=== PATIENT | female | born 1990 | race Hispanic/Latino ===

== ENCOUNTER 2019-01-27 13:48 | Emergency (ER) | payer BC, MEDICAID, OTHER ==
[2019-01-27 14:08] LABS: BASOPHILS % (AUTO) 0.5 % (0.0-5.0); EOSINOPHILS % (AUTO) 0.5 % (0.0-8.0); HEMATOCRIT 36.8 % (36-48); LYMPHOCYTES % (AUTO) 26.1 % (21.0-51.0); MEAN CORPUSCULAR HEMOGLOBIN 30.2 pg (27.0-33.0); MEAN CORPUSCULAR HGB CONC 32.6 g/dL (32.0-36.0); MEAN CORPUSCULAR VOLUME 92.5 fL (79-99); MONOCYTES % (AUTO) 7.4 % (3.0-13.0); NEUTROPHILS % (AUTO) 65.2 % (40.0-77.0); PLATELET COUNT (AUTO) 275 K/uL (130-400); RED BLOOD CELL COUNT(AUTO) 3.98 MIL/uL (4.00-5.50); RED CELL DISTRIBUTION WIDTH 12.3 % (11.0-15.5); WHITE BLOOD COUNT (AUTO) 6.2 K/uL (4.8-10.8)
[2019-01-27] MEDS ORDERED: ACETAMINOPHEN 325 MG TAB ONE (15:15)
== END 2019-01-27 15:43 | disposition home or self-care (01) ==
LOC: EDH 13:48
DX: O20.0 Threatened abortion (principal); Z3A.01 Less than 8 weeks gestation of pregnancy
CPT/HCPCS: 36415; 76817; 84702; 85025; 86900; 86901

== ENCOUNTER 2019-09-16 14:34 | Observation (INO) | payer MEDICAID ==
[~2019-09-16] VITALS: Ht 154.9 cm; Wt 68.9 kg
[2019-09-16 15:08] LABS: APPEARANCE,URINE Clear (CLEAR); BILIRUBIN,URINE Negative (NEGATIVE); COLOR,URINE Yellow (YELLOW); GLUCOSE, URINE (UA) Negative (NEGATIVE); KETONES,URINE Negative (NEGATIVE); LEUKOCYTE ESTERASE ,URINE Trace (NEGATIVE); NITRATE,URINE Negative (NEGATIVE); OCCULT BLOOD,URINE Small (NEGATIVE); PH,URINE 7.5 (5.0-8.0); PROTEIN,URINE Negative (NEGATIVE)
[2019-09-16 15:17] LABS: BACTERIA,URINE Few /HPF (None Seen); MUCUS,URINE Rare LPF (None Seen); SQUAMOUS EPITHELIAL CELL,UR Few /HPF (0-2)
[2019-09-16] MEDS ORDERED: LACTATED RINGERS 1000ML 1,000 ML IV ONE ×2 (18:53)
[2019-09-16] MEDS ORDERED: MAGNESIUM SULFATE 1,000 ML IV PRN (19:40)
[2019-09-16] MEDS ORDERED: LACTATED RINGERS 1000ML 1,000 ML IV SCH (19:40)
[2019-09-16] MEDS ORDERED: CELESTONE SOLUSPAN 6 MG/ML 5ML VIAL IM SCH (19:45)
[2019-09-16] MEDS ORDERED: CALCIUM GLUCONATE 1 GM/10 ML VIAL IV PRN (19:45)
[2019-09-16] MEDS ORDERED: MAGNESIUM 4GM PREMIX 100ML 100 ML IV PRN (19:45)
[2019-09-16] MEDS ORDERED: CELESTONE SOLUSPAN 6 MG/ML 5ML VIAL ONE (19:52)
[2019-09-16] MEDS ORDERED: MAGNESIUM 4GM PREMIX 100ML 100 ML IV ONE (19:52)
[2019-09-16] MEDS ORDERED: AMPICILLIN 2GM+NS 100ML 100 ML IV ONE (19:52)
[2019-09-16] MEDS ORDERED: MAGNESIUM SULFATE 1,000 ML IV ONE (19:52)
[2019-09-16] MEDS ORDERED: AMPICILLIN 2GM+NS 100ML 100 ML IV SCH (20:00)
[2019-09-16] MEDS ORDERED: TERBUTALINE SULFATE VIAL 1MG/ML SQ ONE (21:10)
[2019-09-16] MEDS ORDERED: PROMETHAZINE HCL 25 MG/ML 1ML AMPULE IM PRN (21:15)
[2019-09-16] MEDS ORDERED: MEPERIDINE-PF 50 MG/ML SYG IVP PRN (21:15)
[2019-09-16 21:35] VITALS: BP 110/58
[2019-09-16] MEDS ORDERED: TERBUTALINE SULFATE VIAL 1MG/ML SQ SCH (22:15)
[2019-09-17] MEDS: AMPICILLIN 1GM+NS 50ML 50 ML IV SCH ×3 (00:26→08:13)
== END 2019-09-17 15:20 | disposition home or self-care (01) ==
LOC: EDH 14:34 → LDH 14:35
PROVIDERS: ADMIT Specialist; ATTEND Specialist
DX: O62.9 Abnormality of forces of labor, unspecified (principal); O26.853 Spotting complicating pregnancy, third trimester; R10.9 Unspecified abdominal pain; Z3A.32 32 weeks gestation of pregnancy
CPT/HCPCS: 76805; 81001; 96365; 96366 ×3; 96368; 96372; 96375; 99284; A4314; A4510; A4600; G0378 ×22; J0290 ×4; J0702; J2175; J2550; J3105; J3475 ×2; J7120 ×4; 96360

== ENCOUNTER 2019-09-22 11:29 | Inpatient (IN) | payer MEDICAID ==
[~2019-09-22] VITALS: Ht 154.9 cm; Wt 70.3 kg
[2019-09-22 12:05] LABS: APPEARANCE,URINE Clear (CLEAR); BILIRUBIN,URINE Negative (NEGATIVE); COLOR,URINE Yellow (YELLOW); GLUCOSE, URINE (UA) Negative (NEGATIVE); KETONES,URINE Negative (NEGATIVE); LEUKOCYTE ESTERASE ,URINE Negative (NEGATIVE); NITRATE,URINE Negative (NEGATIVE); OCCULT BLOOD,URINE Negative (NEGATIVE); PROTEIN,URINE Negative (NEGATIVE)
[2019-09-22 12:42] LABS: PH,URINE 8.5 (5.0-8.0)
[2019-09-22] MEDS: LACTATED RINGERS 1000ML 1,000 ML IV SCH ×3 (14:30→23:17)
[2019-09-22] MEDS: TERBUTALINE SULFATE VIAL 1MG/ML SQ PRN ×2 (15:45→16:45)
[2019-09-24] MEDS: LACTATED RINGERS 1000ML 1,000 ML IV SCH ×2 (02:46→11:00)
[2019-09-24] MEDS ORDERED: DOCUSATE SODIUM 100 MG CAP PO ONE (23:14)
[2019-09-25] MEDS: DOCUSATE SODIUM 100 MG CAP PO SCH (20:51)
[2019-09-25] MEDS: LACTATED RINGERS 1000ML 1,000 ML IV SCH (20:52)
[2019-09-26] MEDS: DOCUSATE SODIUM 100 MG CAP PO SCH ×2 (09:00→21:56)
[2019-09-26] MEDS: LACTATED RINGERS 1000ML 1,000 ML IV SCH (13:00)
[2019-09-26 22:16] LABS: HEMATOCRIT 29.9 % (36-48); MEAN CORPUSCULAR HGB CONC 31.4 g/dL (32.0-36.0); RED BLOOD CELL COUNT(AUTO) 3.36 MIL/uL (4.00-5.50); RED CELL DISTRIBUTION WIDTH 13.9 % (11.0-15.5); WHITE BLOOD COUNT (AUTO) 7.6 K/uL (4.8-10.8)
[2019-09-27] MEDS ORDERED: CEFAZOLIN SODIUM 1 GM VIAL IVP PRN (07:00)
[2019-09-27] MEDS ORDERED: OXYTOCIN-LR 20 UNITS/1000 ML 2,000 ML IV ONE (07:17)
[2019-09-27] MEDS ORDERED: TRANEXAMIC ACID 1000MG/10ML ONE (07:23)
[2019-09-27] MEDS ORDERED: MISOPROSTOL 200 MCG TABLET ONE (07:23)
[2019-09-27] MEDS ORDERED: METHYLERGONOVINE MALEATE 0.2 MG/1 ML ML ONE (07:23)
[2019-09-27] MEDS ORDERED: DURAMORPH PF1 MG/ML 10ML AMP IV ONE (07:39)
[2019-09-27] MEDS ORDERED: EPHEDRINE SULFATE 50 MG/ML AMPULE ONE (07:52)
[2019-09-27] MEDS ORDERED: SODIUM CHLORIDE 0.9% 10 ML VIAL IVP PRN (09:00)
[2019-09-27] MEDS ORDERED: PROMETHAZINE HCL 25 MG/ML 1ML AMPULE IM PRN (09:00)
[2019-09-27] MEDS ORDERED: OXYTOCIN-LR 20 UNITS/1000 ML 1,000 ML IV PRN (09:00)
[2019-09-27] MEDS ORDERED: MEPERIDINE-PF 75 MG/ML SYG IM PRN (09:00)
[2019-09-27 10:38] VITALS: BP 119/81
[2019-09-27] MEDS ORDERED: EPHEDRINE SULFATE 50 MG/ML AMPULE IVP PRN (11:15)
[2019-09-27] MEDS ORDERED: DiphenhydrAMINE HCL 50 MG/ML VIAL IVP PRN (11:15)
[2019-09-27] MEDS ORDERED: ONDANSETRON HCL 4 MG/2 ML VIAL IVP PRN (11:15)
[2019-09-27] MEDS ORDERED: NALOXONE HCL 0.4 MG/1 ML ML IVP PRN (11:15)
[2019-09-27] MEDS: DEXTROSE 5 %-0.45 % NACL 1,000 ML IV PRN ×2 (13:56→21:55)
[2019-09-27 16:19] VITALS: BP 108/69
--- NOTE | 2019-09-27 16:19 | NUR ---
PERICARE GIVEN TO PATIENT AT THIS TIME. BLEEDING IS SCANT. FUNDUS IS FIRM PATIENT ABLE TO LIFT HIPS WITHOUT DIFFICULTY. CALL LIGHT LEFT IN REACH, ADVISED TO CALL WITH ANY NEED OR CONCERN.
[2019-09-27 19:30] VITALS: BP 122/77
--- NOTE | 2019-09-27 19:30 | NUR ---
TRAMAINE CARE DONE. Addendum: 09/28/19 at 0530 by ANITHA HEAD RN RN Amended: Links added.
[2019-09-27] MEDS: DOCUSATE SODIUM 100 MG CAP PO SCH ×2 (20:40→20:42)
[2019-09-27] MEDS: LACTATED RINGERS 1000ML 1,000 ML IV SCH ×2 (21:10→21:56)
[2019-09-27 23:14] VITALS: BP 110/68
[2019-09-28] MEDS: LACTATED RINGERS 1000ML 1,000 ML IV SCH (02:12)
[2019-09-28 03:03] VITALS: BP 107/56
--- NOTE | 2019-09-28 04:30 | NUR ---
TRAMAINE CARE DONE, WELL TOLERATED. Addendum: 09/28/19 at 0530 by ANITHA HEAD RN RN Amended: Links added.
[2019-09-28] MEDS: DEXTROSE 5 %-0.45 % NACL 1,000 ML IV PRN (04:31)
--- NOTE | 2019-09-28 06:45 | NUR ---
MARCY ZAMBRANO. PT. INST TO CALL FOR ASSIST BEFORE GETTING OUT OF BED, VERBALIZED UNDERSTANDING. Addendum: 09/28/19 at 0659 by ANITHA HEAD RN RN Amended: Links added.
[2019-09-28 07:02] LABS: HEMATOCRIT 25.1 % (36-48); MEAN CORPUSCULAR HEMOGLOBIN 28.3 pg (27.0-33.0); MEAN CORPUSCULAR HGB CONC 31.9 g/dL (32.0-36.0); MEAN CORPUSCULAR VOLUME 88.7 fL (79-99); RED BLOOD CELL COUNT(AUTO) 2.83 MIL/uL (4.00-5.50); RED CELL DISTRIBUTION WIDTH 14.4 % (11.0-15.5); WHITE BLOOD COUNT (AUTO) 12.2 K/uL (4.8-10.8)
[2019-09-28 07:32] VITALS: BP 109/73
--- NOTE | 2019-09-28 08:30 | NUR ---
assisted to the bathroom, voided 400ml, pericare done, assisted to bedside chair. Addendum: 09/28/19 at 0849 by RITO HENAO RN Amended: Links added.
[2019-09-28] MEDS ORDERED: IBUPROFEN 600 MG TABLET PO PRN (08:45)
[2019-09-28] MEDS ORDERED: ACETAMINOPHEN-CODEINE 300/30MG TAB PO PRN (08:45)
[2019-09-28] MEDS ORDERED: HYDROCODONE/ACETAMINOPHEN 5/325 MG TAB PO PRN (08:45)
[2019-09-28] MEDS ORDERED: BISACODYL 10 MG SUPP.RECT RC PRN (08:45)
[2019-09-28] MEDS ORDERED: ACETAMINOPHEN EXTRA STRENGTH 500 MG TABLET PO PRN (08:45)
[2019-09-28] MEDS: DOCUSATE SODIUM 100 MG CAP PO SCH ×3 (08:51→20:49)
[2019-09-28] MEDS: IBUPROFEN 800 MG TAB PO SCH ×2 (08:52→16:57)
[2019-09-28 11:29] VITALS: BP 94/58
--- NOTE | 2019-09-28 12:06 | NUR ---
PATIENT AMBULATING TO NURSERY. NO C/O DIZZINESS REPORTED, STEADY GAIT NOTED.
[2019-09-28] MEDS: SIMETHICONE 80 MG TAB.CHEW PO PRN ×2 (13:40→20:46)
[2019-09-28 14:11] LABS: HEPATITIS Bs ANTIGEN SCREEN P Negative (Negative)
[2019-09-28 16:11] VITALS: BP 111/66
[2019-09-28] MEDS: DIPH,PERTUSS(ACELL),TET VAC/PF 0.5 ML VIAL IM SCH (16:57)
[2019-09-28 20:04] VITALS: BP 111/71
[2019-09-29] MEDS: IBUPROFEN 800 MG TAB PO SCH ×2 (00:54→08:47)
[2019-09-29 01:00] VITALS: BP 90/60
[2019-09-29 03:17] VITALS: BP 112/63
[2019-09-29 07:27] VITALS: BP 98/54
[2019-09-29] MEDS: DIPH,PERTUSS(ACELL),TET VAC/PF 0.5 ML VIAL IM SCH (07:39)
[2019-09-29] MEDS: SIMETHICONE 80 MG TAB.CHEW PO PRN (08:46)
[2019-09-29] MEDS: DOCUSATE SODIUM 100 MG CAP PO SCH (08:46)
--- NOTE | 2019-09-29 11:20 | NUR ---
PATIENT LEFT UNIT VIA WHEELCHAIR WITH BELONGINGS IN ARMS. BABY TO STAY IN NURSERY FOR OBSERVATION. PERSONAL VEHICLE USED FOR TRANSPORTATION. NO COMPLAINTS OR CONCERNS ADDRESSED FROM PATIENT ON DISCHARGE.
== END 2019-09-29 11:20 | disposition home or self-care (01) | DRG 539 ==
LOC: EDH 11:29 → OBSVTOIN 11:30 → LDH 11:30 → WSH 09-27 10:35
PROVIDERS: ADMIT Specialist; ATTEND Specialist
PROC: 0UB70ZZ Excision of Bilateral Fallopian Tubes, Open Approach (ICD-10-PCS; 2019-09-27)
PROC: 3E0234Z Introduction of Serum, Toxoid and Vaccine into Muscle, Percutaneous Approach (ICD-10-PCS; 2019-09-27)
PROC: 10D00Z1 Extraction of Products of Conception, Low, Open Approach (ICD-10-PCS; principal; 2019-09-27 07:30)
DX: O34.211 Maternal care for low transverse scar from previous cesarean delivery (principal); O67.9 Intrapartum hemorrhage, unspecified; O60.14X0 Preterm labor third trimester with preterm delivery third trimester, not applicable or unspecified; O99.62 Diseases of the digestive system complicating childbirth; K66.0 Peritoneal adhesions (postprocedural) (postinfection); Z3A.34 34 weeks gestation of pregnancy; Z37.0 Single live birth; Z30.2 Encounter for sterilization; Z23 Encounter for immunization
CPT/HCPCS: 36415; 59025; 59510; 76805; 76819; 81003; 85027; 86592; 86850; 86900; 86901; 87340; 88302; 88307; 90715; 96360; 96361; A4344; G0378; J0690; J2175; J2210; J2274; J2405; J2550; J2590; J3490; J7042; J7120

== ENCOUNTER 2021-12-19 14:05 | Emergency (ER) | payer MEDICAID ==
[~2021-12-19] VITALS: Ht 154.9 cm; Wt 58.1 kg
[2021-12-19 14:09] VITALS: BP 113/74
[2021-12-19] MEDS ORDERED: ACETAMINOPHEN 500 MG TABLET PO ONE (15:00)
[2021-12-19] MEDS ORDERED: CYCLOBENZAPRINE HCL 10 MG TABLET PO ONE (15:00)
[2021-12-19] MEDS ORDERED: TRAMADOL HCL 50 MG TABLET PO ONE (15:00)
[2021-12-19] MEDS ORDERED: NAPR-1180 PO (15:53)
[2021-12-19] MEDS ORDERED: CYCL10TA16 PO (15:53)
== END 2021-12-19 16:18 | disposition home or self-care (01) ==
LOC: EDH 14:05
DX: S39.012A Strain of muscle, fascia and tendon of lower back, initial encounter (principal); K59.01 Slow transit constipation; Z91.013 Allergy to seafood; Z79.899 Other long term (current) drug therapy; Z98.890 Other specified postprocedural states; X50.0XXA Overexertion from strenuous movement or load, initial encounter; Y93.89 Activity, other specified; Y92.89 Other specified places as the place of occurrence of the external cause; Y99.8 Other external cause status
CPT/HCPCS: 72100